=== PATIENT | female | born 1975 ===

== ENCOUNTER 2018-09-12 11:41 | Day surgery (SDC) | payer SELFPAY ==
[2018-09-11 09:15] VITALS: BMI 27.0
--- NOTE | 2018-09-12 12:20 | CP.SDSHP ---
Same Day Surgery H & P - History Proposed Procedure: laparoscopic cholecystectomy Pre-Op Diagnosis: cholelithiasis - Previous Medical/Surgical History Pain: 0. No Pain Previous Surgical History: none - Allergies Allergies: Allergies No Known Allergies Allergy (Verified 09/17/16 22:17) - Current Medications Current Medications: none - Physical Exam General Appearance: NAD AAOx3 Mental Status: Alert & Oriented x3 Neuro: WNL Heart: WNL Lungs: WNL GI: WNL - {Optional Preform as Required} Breast: WNL Abdomen: WNL Integument: WNL - Impression Impression: cholelithiasis - Date & Time Date: 09/12/18 Time: 12:20 Short Stay Discharge - Short Stay Discharge Admitting Diagnosis/Reason for Visit: K80.20 Disposition: HOME/ ROUTINE Medications: oxyCODONE/Acetaminophen [Percocet 5/325 mg Tab] 2 tab PO Q4 PRN #30 tab PRN Reason: Pain, Moderate (4-7) Follow-up: follow up w Dr. Beck in 1-2 weeks OK to take shower. Take bandaid off. Keep glue on. No heavy lifting for 1 month Ok to return to work
[2018-09-12 12:29] VITALS: RESP 18
[2018-09-12] MEDS ORDERED: Lidocaine 4% (Laryng-O-Jet) Kit MM ONE (12:47)
[2018-09-12] MEDS ORDERED: ePHEDrine 50 mg/ml Inj ONE (12:47)
[2018-09-12] MEDS ORDERED: Rocuronium 10 mg/ml (5 ml) ONE (12:47)
[2018-09-12] MEDS ORDERED: Propofol 10 mg/ml Inj (20 ML) ONE (12:47)
[2018-09-12] MEDS ORDERED: Midazolam 2 MG/2 ML VIAL ONE (12:47)
[2018-09-12] MEDS ORDERED: Succinylcholine 200 mg/10 ml Inj IV ONE (12:51)
[2018-09-12] MEDS ORDERED: ceFAZolin IV 1 gm in Dextrose 2 GM/100 ML BAG IVPB ONE (13:01)
[2018-09-12] MEDS ORDERED: Lactated Ringer's 1,000 ML IV ONE ×2 (13:12→16:45)
[2018-09-12] MEDS ORDERED: Dexamethasone 4 mg/1 ml ONE (13:38)
[2018-09-12] MEDS ORDERED: Iohexol 300 10 ML ONE (13:49)
[2018-09-12] MEDS ORDERED: Neostigmine 1:1000 (1 mg/ml) Inj ONE (14:40)
[2018-09-12] MEDS ORDERED: Oxycodone/Acetaminophen 5/325 mg Tab PO PRN (14:58)
--- NOTE | 2018-09-12 14:59 | CP.SDSHP ---
Same Day Surgery H & P - History Proposed Procedure: laparoscopic cholecystectomy Pre-Op Diagnosis: cholelithiasis - Allergies Allergies: Allergies No Known Allergies Allergy (Verified 09/12/18 12:31) - Physical Exam Vital Signs: Vital Signs 09/12/18 09/12/18 12:18 12:26 Temperature 98.5 F Pulse Rate 68 68 Respiratory 18 Rate Blood Pressure 104/70 O2 Sat by Pulse 100 Oximetry Short Stay Discharge - Short Stay Discharge Admitting Diagnosis/Reason for Visit: K80.20 Disposition: HOME/ ROUTINE
[2018-09-12] MEDS ORDERED: Lactated Ringer's 1,000 ML IV SCH (15:00)
--- NOTE | 2018-09-12 15:06 | PCM.SURG1 ---
Surgeon's Initial Post Op Note - Surgeon's Notes Surgeon: Kiran Study Manager: Gabrielle PGY4, Senthil PGY3 Type of Anesthesia: General Endo Pre-Operative Diagnosis: Cholelithiasis Operative Findings: gallstones Post-Operative Diagnosis: same Operation Performed: laparoscopic cholecystectomy with IOC Specimen/Specimens Removed: gallbladder Estimated Blood Loss: EBL {In ML}: 15 Blood Products Given: N/A Drains Used: No Drains Post-Op Condition: Good Date of Surgery/Procedure: 09/12/18 Time of Surgery/Procedure: 15:07
[2018-09-12] MEDS: HYDROmorphone 0.5 mg/0.5 ml ISec IVP PRN ×2 (15:12→15:23)
--- NOTE | 2018-09-12 15:30 | RAD ---
Date of service: 09/12/2018 PROCEDURE: Intraoperative Fluoroscopy. HISTORY: OR CHOLANGIOGRAM FINDINGS: Fluoroscopic assistance was provided. Fluoroscopy time = 12.5 sec. Radiation dose = 6.81 mGy. Please refer to the operative report from MAURICIO Jett.
[2018-09-12 18:21] VITALS: BP 115/73; PULSE 89; TEMP 97.6; O2SAT 99
--- NOTE | 2018-09-13 04:49 | OP ---
PROCEDURE DATE: 09/12/2018 PREOPERATIVE DIAGNOSIS: Symptomatic cholelithiasis. POSTOPERATIVE DIAGNOSIS: Symptomatic cholelithiasis. PROCEDURE: Laparoscopic cholecystectomy with intraoperative cholangiogram. INDICATIONS: This is a 43-year-old female with symptomatic cholelithiasis who was elected for laparoscopic cholecystectomy. DESCRIPTION OF PROCEDURE: After informed consent was obtained, the patient was brought to the operating room and placed on the operating table in supine position. General anesthesia was induced with all appropriate monitoring devices in place. The abdomen was then prepped and draped in the usual sterile fashion. Time-out was then conducted verifying correct procedure, site, position, and laterality. Next, a transverse incision was made in the natural skin line just above the umbilicus. The fascia was elevated. A Veress needle was inserted. The abdomen was insufflated with carbon dioxide to a pressure of 15, and the patient tolerated the insufflation well. Next, an 11-mm trocar was placed in the umbilicus. This was followed by the placement of the laparoscope into the abdomen. The abdomen was inspected and there were no injuries from the initial trocar placement. Next under direct visualization, an 11-mm trocar was placed in the right epigastrium followed by two 5-mm trocars in the right costal margin. The abdomen was inspected and no abnormalities were found. The patient was then placed in a reverse Trendelenburg with the right side up. Filmy adhesions from the gallbladder and the duodenum were then sharply lysed. The dome of the gallbladder was then grasped with an atraumatic grasper and passed through the lateral port and retracted over the dome of the liver. Infundibulum was grasped with an atraumatic grasper through the mid clavicular port and retracted toward the right lower quadrant. This maneuver exposed the Calot's triangle. What appeared to be an enlarged common bile duct was visualized, and decision was made to perform a cholangiogram Cystic duct and cystic artery were identified circumferentially. A clip was then placed on the cystic duct, close to the neck of the gallbladder. A anish was made in the cystic duct, and a cholangiogram catheter was inserted. Cholangiogram was obtained which showed good flow bile into the duodenum and an intact biliary tree with absence of any filling defects or stones. The cystic duct and the cystic artery were then doubly clipped and divided close to the gallbladder. The gallbladder was then dissected from its peritoneal attachment by electrocautery. Hemostasis was checked and the gallbladder was removed using an EndoCatch through the umbilical port. The gallbladder was passed off the table as a specimen. The gallbladder fossa was then adequately irrigated with saline, and hemostasis was obtained. There was no evidence of bleeding from the gallbladder fossa, cystic artery, leakage of the bowel or stump. The trocars were then removed under direct visualization. No bleeding was noted at the trocar site. Laparoscope was then withdrawn. The umbilical trocars were removed. The abdomen was largely collapsed and the fascia at the umbilical site was then closed with 0 Vicryl in a [id number] fashion. The skin was then closed with subcuticular 4-0 Monocryl, and Dermabond was applied. The patient tolerated the procedure well and was taken to the PACU in stable condition. Navi Anthony DO Sandra Beck MD KAREN
== END 2018-09-12 18:40 | disposition home or self-care (01) ==
LOC: H.OPSURG 11:41
PROVIDERS: ATTEND Specialist
DX: K80.20 Calculus of gallbladder without cholecystitis without obstruction (principal)
CPT/HCPCS: 47563; 88304; J0330; J0690; J1100; J1170; J2001; J2250; J2405; J2704; J2710; J3010; J7120; Q9967